=== PATIENT | female | born 1985 | race Caucasian/White ===

== ENCOUNTER 2016-12-08 12:37 | Emergency (ER) | payer OTHER ==
[~2016-12-08] VITALS: Ht 154.9 cm; Wt 99.8 kg
[2016-12-08 14:31] LABS: APPEARANCE,URINE CLEAR (CLEAR); BILIRUBIN,URINE NEGATIVE (NEGATIVE); BLOOD, URINE NEGATIVE (NEGATIVE); COLOR,URINE YELLOW (YELLOW); LEUKOCYTE ESTERASE ,URINE NEGATIVE (NEGATIVE); NITRITE, URINE NEGATIVE (NEGATIVE); UGLUCOSE NEGATIVE (NEGATIVE)
[2016-12-08 14:37] LABS: BASOPHILS # (AUTO) 0.2 K/uL (0.00-0.22); BASOPHILS % (AUTO) 1.2 % (0.0-2.0); EOSINOPHILS # (AUTO) 0.2 K/uL (0-0.4); EOSINOPHILS % (AUTO) 1.6 % (0.0-4.0); HEMATOCRIT 41.3 % (36-48); HEMOGLOBIN 13.5 g/dL (12.0-16.0); LYMPHOCYTES # (AUTO) 2.7 K/uL (2.5-16.5); LYMPHOCYTES % (AUTO) 21.2 % (20.5-51.1); MEAN CORPUSCULAR HEMOGLOBIN 26 pg (27-31); MEAN CORPUSCULAR HGB CONC 33 g/dL (33-37); MEAN CORPUSCULAR VOLUME 80 fL (80-94); MONOCYTES # (AUTO) 0.5 K/uL (0.8-1.0); MONOCYTES % (AUTO) 3.6 % (1.7-9.3); NEUTROPHILS % (AUTO) 72.4 % (42.2-75.2); PLATELET COUNT (AUTO) 289 K/uL (140-450); RED BLOOD CELL COUNT(AUTO) 5.14 MIL/uL (4.20-5.40); RED CELL DISTRIBUTION WIDTH 13.1 % (11.6-13.7); WHITE BLOOD COUNT (AUTO) 12.6 K/uL (4.8-10.8)
[2016-12-08 14:41] LABS: ANION GAP 13.5 (8-16); CARBON DIOXIDE 28.3 mmol/L (21-32); CREATININE 0.5 mg/dL (0.6-1.3); POTASSIUM 3.8 mmol/L (3.5-5.1)
[2016-12-08 14:47] LABS: ALBUMIN 4.2 g/dL (3.4-5.0); TOTAL BILIRUBIN 0.3 mg/dL (0.0-1.0)
--- NOTE | 2016-12-08 15:37 | NUR ---
Patient ambulated to bed 4. RN evaluating patient at bedside.
--- NOTE | 2016-12-08 15:45 | NUR ---
PT PRESENTS TO ER W/C/O LOWER ABDOMINAL PAIN SINCE THIS AM. HX OF DM, HTN, HYPERLIPIDEMIA. . PT STATES SHE HAS BURNING PAIN WHEN SHE URINATES. FEELS NAUSEATED BUT DENIES DENIES VOMITTING; SKIN IS PINK/WARM/DRY; AAOX4 WITH EVEN AND STEADY GAIT; LUNGS CLEAR BL; HR EVEN AND REGULAR; PT DENIES ANY FEVER, CP, SOB, OR COUGH AT THIS TIME; PATIENT STATES PAIN OF 8/10 AT THIS TIME;PATIENT POSITIONED FOR COMFORT; HOB ELEVATED; BEDRAILS UP X2; BED DOWN. ALL MONITORS IN PLACED;ER MD MADE AWARE OF PT STATUS.
--- NOTE | 2016-12-08 15:47 | NUR ---
Dr. Yap evaluating patient at bedside.
[2016-12-08] MEDS ORDERED: KETOROLAC 60 MG/2 ML VIAL IM ONE (15:55)
--- NOTE | 2016-12-08 16:54 | NUR ---
US AT BEDSIDE.
--- NOTE | 2016-12-08 17:23 | NUR ---
PT RESTING ON BED;NO ACUTE DISTRESS NOTED;WILL CONTINUE TO MONITOR PT.
[2016-12-08 18:31] VITALS: BP 148/98
== END 2016-12-08 18:31 | disposition home or self-care (01) ==
LOC: MED 12:37
DX: N83.202 Unspecified ovarian cyst, left side (principal); E11.9 Type 2 diabetes mellitus without complications; I10 Essential (primary) hypertension; E78.5 Hyperlipidemia, unspecified; Z88.8 Allergy status to other drugs, medicaments and biological substances
CPT/HCPCS: 36415; 74176; 76856; 80053; 81003; 84703; 85025; 96372; 99285; J1885; Q0092

== ENCOUNTER 2018-10-12 16:31 | Emergency (ER) | payer OTHER ==
[~2018-10-12] VITALS: Ht 154.9 cm; Wt 91.6 kg
[2018-10-12 16:33] VITALS: BP 136/83
--- NOTE | 2018-10-12 16:40 | NUR ---
Patient ambulated to bed 1 with family. RN evaluating patient at bedside.
[2018-10-12 16:45] VITALS: BP 136/83
--- NOTE | 2018-10-12 16:45 | NUR ---
PATIENT IS A 33 Y/O FEMALE WHO PRESENTS TO THE ED C/O FOOT PAIN. PER PT STATES THAT SHE SLAMMED HER R FOOT/5TH DIGIT AGAINST FAMILY MEMBERS FOOT. PT TOOK TYLENOL WITH NO RELIEF FROM PAIN. PT REPORTS 7/10 ACHING R FOOT/5TH DIGIT PAIN THAT DOES NOT RADIATE. MILD SWELLING AND BRUISING NOTED. CMS INTACT. PT AWAKE AND ALERT, RR EVEN/UNLABORED. PT REPOSITIONED FOR COMFORT, BED IN LOWEST POSITION. ER MD DR. STEEN NOTIFIED. WILL CONTINUE TO MONITOR. PMH---HTN, HIGH CHOLESTEROL, DM ALLERGIES---PROPOXYPHENE, DARVOCET
--- NOTE | 2018-10-12 17:48 | NUR ---
PLACED A ORTHO SHOE ON PT'S RIGHT FOOT.
--- NOTE | 2018-10-12 17:50 | NUR ---
PATIENT D/C BY DR. STEEN. RX OF NAPROSYN 500MG GIVEN. ALL QUESTIONS ADDRESSED AND ANSWERED. ID BAND REMOVED. AMB TO CAR WITH ORTHO SHOE.
== END 2018-10-12 17:50 | disposition home or self-care (01) ==
LOC: MED 16:31
DX: S92.534A Nondisplaced fracture of distal phalanx of right lesser toe(s), initial encounter for closed fracture (principal); I10 Essential (primary) hypertension; E11.9 Type 2 diabetes mellitus without complications; E78.00 Pure hypercholesterolemia, unspecified; Z88.8 Allergy status to other drugs, medicaments and biological substances; Z98.890 Other specified postprocedural states; W22.8XXA Striking against or struck by other objects, initial encounter; Y93.02 Activity, running; Y92.89 Other specified places as the place of occurrence of the external cause; Y99.8 Other external cause status
CPT/HCPCS: 73630; 99283; Q0092

== ENCOUNTER 2018-11-30 05:17 | Emergency (ER) | payer OTHER ==
[~2018-11-30] VITALS: Ht 154.9 cm; Wt 93.0 kg
--- NOTE | 2018-11-30 05:20 | NUR ---
TO [facility] # [id number] AMBULATORY
[2018-11-30 05:22] VITALS: BP 120/73
--- NOTE | 2018-11-30 05:30 | NUR ---
33/F PRESENTED TO ED WITH C/O LOWER BACK PAIN, STARTED YESTERDAY, NO TRAUMA OR INJURY. NON RADIATING. 8/10 SHARP PAIN PROVOKED BY MOVEMENT. STATES SHE PICKED UP 2 24 PACK OF WATER BOTTLES UP AT WORK YESTERDAY. +CMS. +ROM IN UPPER AND LOWER EXTREMITIES. NO REDNESS. NO EDEMA NOTED. NO SPINAL DEFORMITIES. DENIES N/V/D. NO FEVER OR CHILLS. PAST MED HX HTN, DM, HYPERLIPIDEMIA. RX METFORMIN, AMPLODIPINE, LISINOPRIL, HYDROCLOROTHIAZIDE. DENIES ALLERGIES. WILL CONTINUE TO MONITOR.
[2018-11-30] MEDS ORDERED: KETOROLAC 60 MG/2 ML VIAL IM ONE (06:15)
--- NOTE | 2018-11-30 06:15 | NUR ---
Dr. Waite examining patient.
[2018-11-30] MEDS ORDERED: KETOROLAC 30 MG/ML VIAL ONE (06:17)
[2018-11-30 06:29] VITALS: BP 120/73
== END 2018-11-30 06:29 | disposition home or self-care (01) ==
LOC: MED 05:17
DX: M54.5 Low back pain (principal); E11.9 Type 2 diabetes mellitus without complications; I10 Essential (primary) hypertension; E78.5 Hyperlipidemia, unspecified; Z98.890 Other specified postprocedural states; Z88.5 Allergy status to narcotic agent
CPT/HCPCS: 81002; 81025; 96372; 99283; J1885

== ENCOUNTER 2020-12-03 16:55 | Emergency (ER) | payer OTHER ==
[~2020-12-03] VITALS: Ht 154.9 cm; Wt 86.2 kg
[2020-12-03 17:29] VITALS: BP 123/75
--- NOTE | 2020-12-03 17:37 | NUR ---
LOBBY Addendum: 12/03/20 at 1737 by [email or web address] HANDED ON URINE CUP.
--- NOTE | 2020-12-03 19:55 | NUR ---
PT AMBULATED TO TRIAGE FOR EKG.
--- NOTE | 2020-12-03 20:02 | NUR ---
PT RETURNED TO LOBBY WITH STEADY GAIT.
[2020-12-03 20:15] LABS: BASOPHILS # (AUTO) 0.2 K/uL (0.00-0.22); EOSINOPHILS # (AUTO) 0.1 K/uL (0-0.4); EOSINOPHILS % (AUTO) 0.6 % (0.0-4.0); HEMATOCRIT 36.6 % (36-48); HEMOGLOBIN 12.2 g/dL (12.0-16.0); LYMPHOCYTES # (AUTO) 2.6 K/uL (2.5-16.5); LYMPHOCYTES % (AUTO) 16.1 % (20.5-51.1); MEAN CORPUSCULAR HEMOGLOBIN 27 pg (27-31); MEAN CORPUSCULAR HGB CONC 33 g/dL (33-37); MEAN CORPUSCULAR VOLUME 80.1 fL (80-94); MONOCYTES # (AUTO) 0.6 K/uL (0.8-1.0); MONOCYTES % (AUTO) 3.8 % (1.7-9.3); NEUTROPHILS # (AUTO) 12.9 K/uL (1.8-7.7); NEUTROPHILS % (AUTO) 78.5 % (42.2-75.2); PLATELET COUNT (AUTO) 304 K/uL (140-450); RED BLOOD CELL COUNT(AUTO) 4.58 MIL/uL (4.20-5.40); RED CELL DISTRIBUTION WIDTH 15.5 % (11.6-13.7); WHITE BLOOD COUNT (AUTO) 16.4 K/uL (4.8-10.8)
[2020-12-03 20:29] LABS: ALBUMIN 4.1 g/dL (3.4-5.0); CARBON DIOXIDE 23.3 mmol/L (21-32); CREATININE 0.5 mg/dL (0.6-1.3); POTASSIUM 4.3 mmol/L (3.5-5.1); TOTAL BILIRUBIN 0.3 mg/dL (0.0-1.0)
[2020-12-03] MEDS ORDERED: BEN10 PO (21:30)
--- NOTE | 2020-12-03 21:57 | NUR ---
Patient discharged with v/s stable. Written and verbal after care instructions given and explained. Patient alert, oriented and verbalized understanding of instructions. Ambulatory with steady gait. All questions addressed prior to discharge. ID band removed. Patient advised to follow up with PMD. Rx of BENTYL given. Patient educated on indication of medication including possible reaction and side effects. Opportunity to ask questions provided and answered.
== END 2020-12-03 21:57 | disposition home or self-care (01) ==
LOC: MED 16:55
DX: R10.2 Pelvic and perineal pain (principal); M54.9 Dorsalgia, unspecified; R06.02 Shortness of breath; M79.601 Pain in right arm; M79.602 Pain in left arm; E11.9 Type 2 diabetes mellitus without complications; I10 Essential (primary) hypertension; Z88.5 Allergy status to narcotic agent
CPT/HCPCS: 36415; 80053; 81002; 81025; 85025; 93005; 99284

== ENCOUNTER 2021-05-21 09:14 | Day surgery (SDC) | payer OTHER, SELFPAY ==
[~2021-05-21] VITALS: Ht 154.9 cm; Wt 95.3 kg
[~2021-05-21 09:14] MED LIST: BEN10 PO
[2021-05-21] MEDS ORDERED: fentaNYL citrate 0.05 MG/ML VIAL ONE (11:58)
[2021-05-21] MEDS ORDERED: diphenhydrAMINE 50 MG/ML VIAL ONE (11:58)
[2021-05-21] MEDS ORDERED: MIDAZOLAM 5 MG/5 ML VIAL ONE (11:58)
[2021-05-21] MEDS ORDERED: LIDOCAINE 2% 100 MG/5 ML UJET TP ONE (11:59)
[2021-05-21] MEDS ORDERED: MIDAZOLAM 2 MG/2 ML VIAL IVP ONE (13:45)
[2021-05-21] MEDS ORDERED: fentaNYL citrate 0.05 MG/ML VIAL IVP ONE (13:45)
[2021-05-21] MEDS ORDERED: diphenhydrAMINE 50 MG/ML VIAL IVP ONE (13:45)
== END 2021-05-21 13:23 | disposition home or self-care (01) ==
LOC: MDS 09:14 → MMU 09:15 → MDS 13:23
PROVIDERS: ATTEND Internal Medicine Gastroenterology
DX: K62.5 Hemorrhage of anus and rectum (principal); I10 Essential (primary) hypertension; E11.9 Type 2 diabetes mellitus without complications; E78.00 Pure hypercholesterolemia, unspecified; Z79.84 Long term (current) use of oral hypoglycemic drugs; Z79.899 Other long term (current) drug therapy; Z20.822 Contact with and (suspected) exposure to COVID-19
CPT/HCPCS: 45378; 81025; 87426; G0378; J1200; J2250; J3010